=== PATIENT | male | born 1990 | race Caucasian/White ===

== ENCOUNTER 2017-06-20 06:14 | Day surgery (SDC) | payer OTHER ==
--- NOTE | 2017-06-20 07:03 | EDM.PDOC ---
ED HPI GENERAL MEDICAL PROBLEM - General Chief Complaint: Abdominal Pain Stated Complaint: ABDOMINAL PAIN Time Seen by Provider: 06/20/17 06:53 - History of Present Illness INITIAL COMMENTS - FREE TEXT/NARRATIVE: HISTORY AND PHYSICAL: History of present illness: Patient's 26-year-old white male presents with concern of acute right sided flank and abdominal pain with associated nausea and vomiting he denies trauma. Her chills or other complaints this came on acutely this morning while at work he denies history of urolithiasis denies prior surgery Review of systems: As per history of present illness and below otherwise all systems reviewed and negative. Past medical history: As per history of present illness and as reviewed below otherwise noncontributory. Surgical history: As per history of present illness and as reviewed below otherwise noncontributory. Social history: No reported history of drug or alcohol abuse. Family history: As per history of present illness and as reviewed below otherwise noncontributory. Physical exam: HEENT: Atraumatic, normocephalic, pupils reactive, negative for conjunctival pallor or scleral icterus, mucous membranes moist, throat clear, neck supple, nontender, trachea midline. Lungs: Clear to auscultation, breath sounds equal bilaterally, chest nontender. Heart: S1S2, regular, negative for clicks, rubs, or JVD. Abdomen: Soft, nondistended, localized right lower quadrant tenderness with guarding equivocal rebound. Negative for masses or hepatosplenomegaly. Right- sided costovertebral tenderness. Pelvis: Stable nontender. Genitourinary: Deferred. Rectal: Deferred. Extremities: Atraumatic, negative for cords or calf pain. Neurovascular unremarkable. Neuro: Awake, alert, oriented. Cranial nerves II through XII unremarkable. Cerebellum unremarkable. Motor and sensory unremarkable throughout. Exam nonfocal. Diagnostics: CBC CMP UA urine culture CT abdomen and pelvis Therapeutics: Normal saline 1 L bolus and Toradol 30 mg IV Zofran 4 mg IV Dilaudid 1 mg IV Flomax 0.4 mg by mouth Impression: #1 acute right-sided abdominal/flank pain Definitive disposition and diagnosis as appropriate pending reevaluation and review of above. right lower quadrant abdomen Pain Score (Numeric/FACES): 8 - Related Data Allergies Allergy/AdvReac Type Severity Reaction Status Date / Time No Known Allergies Allergy Verified 06/20/17 07:00 Home Meds: Home Meds . [No Known Home Meds] 06/20/17 [History] ED ROS GENERAL - Review of Systems Review Of Systems: ROS reveals no pertinent complaints other than HPI. ED EXAM, GENERAL - Physical Exam Exam: See Below (See dictation) Course - Vital Signs Last Recorded V/S: Last Vital Signs Temp 36.5 C 06/20/17 07:01 Pulse 79 06/20/17 07:25 Resp 16 06/20/17 07:25 BP 128/68 06/20/17 07:25 Pulse Ox 98 06/20/17 07:25 - Orders/Labs/Meds Orders: Active Orders 24 hr Category Date Time Status Abdomen Pelvis wo Cont [CT] Stat Exams 06/20/17 07:12 Taken CULTURE URINE [RM] Stat Lab 06/20/17 07:04 Received Sodium Chloride 0.9% [Saline Flush] Med 06/20/17 07:12 Active 10 ml FLUSH ASDIRECTED PRN Sodium Chloride 0.9% [Saline Flush] Med 06/20/17 07:12 Active 2.5 ml FLUSH ASDIRECTED PRN Saline Lock Insert [OM.PC] Stat Oth 06/20/17 07:07 Ordered Medication Orders Sodium Chloride (Saline Flush) 10 ml FLUSH ASDIRECTED PRN PRN Reason: Keep Vein Open Sodium Chloride (Saline Flush) 2.5 ml FLUSH ASDIRECTED PRN PRN Reason: Keep Vein Open Labs: Laboratory Tests 06/20/17 06/20/17 06/20/17 Range/Units 07:00 07:00 07:04 WBC 11.73 H (4.0-11.0) K/uL RBC 4.37 L (4.50-5.90) M/uL Hgb 14.0 (13.0-17.0) g/dL Hct 40.5 (38.0-50.0) % MCV 92.7 (80.0-98.0) fL MCH 32.0 (27.0-32.0) pg MCHC 34.6 (31.0-37.0) g/dL RDW Std Deviation 44.2 (28.0-62.0) fl RDW Coeff of Annette 13 (11.0-15.0) % Plt Count 199 (150-400) K/uL MPV 9.90 (7.40-12.00) fL Neut % (Auto) 71.9 (48.0-80.0) % Lymph % (Auto) 17.7 (16.0-40.0) % [place] % (Auto) 9.0 (0.0-15.0) % Eos % (Auto) 1.1 (0.0-7.0) % Baso % (Auto) 0.3 (0.0-1.5) % Neut # (Auto) 8.4 H (1.4-5.7) K/uL Lymph # (Auto) 2.1 (0.6-2.4) K/uL [place] # (Auto) 1.1 H (0.0-0.8) K/uL Eos # (Auto) 0.1 (0.0-0.7) K/uL Baso # (Auto) 0.0 (0.0-0.1) K/uL Nucleated RBC % 0.0 /100WBC Nucleated RBCs # 0 K/uL Sodium 138 (136-146) mmol/L Potassium 3.5 (3.5-5.1) mmol/L Chloride 105 (98-110) mmol/L Carbon Dioxide 23 (21-31) mmol/L BUN 9 (6.0-23.0) mg/dL Creatinine 1.0 (0.6-1.5) mg/dL Est Cr Clr Drug Dosing TNP Estimated GFR (MDRD) > 60.0 ml/min Glucose 116 H (60-110) mg/dL Calcium 9.4 (8.8-10.8) mg/dL Total Bilirubin 0.9 (0.1-1.5) mg/dL AST 23 (5-40) IU/L ALT 15 (8-54) IU/L Alkaline Phosphatase 69 (40-150) Total Protein 7.2 (6.0-8.0) g/dL Albumin 4.0 (3.5-5.0) g/dL Globulin 3.2 (2.0-3.5) g/dL Albumin/Globulin Ratio 1.3 (1.3-2.8) Urine Color YELLOW Urine Appearance CLEAR Urine pH 6.0 (5.0-8.0) Ur Specific [place] 1.025 (1.001-1.035) Urine Protein NEGATIVE (NEGATIVE) mg/dL Urine Glucose (UA) NEGATIVE (NEGATIVE) mg/dL Urine Ketones NEGATIVE (NEGATIVE) mg/dL Urine Occult Blood NEGATIVE (NEGATIVE) Urine Nitrite NEGATIVE (NEGATIVE) Urine Bilirubin NEGATIVE (NEGATIVE) Urine Urobilinogen 0.2 (<2.0) EU/dL Ur Leukocyte Esterase NEGATIVE (NEGATIVE) Urine RBC 0-2 (0-2/HPF) Urine WBC 0-1 (0-5/HPF) Ur Epithelial Cells RARE (NONE-FEW) Urine Bacteria RARE (NEGATIVE) Urine Mucus LIGHT (NONE-MOD) Meds: Medications Generic Name Dose Route Start Last Admin Trade Name Freq PRN Reason Stop Dose Admin Sodium Chloride 10 ml 06/20/17 07:12 Saline Flush FLUSH ASDIRECTED PRN Keep Vein Open Sodium Chloride 2.5 ml 06/20/17 07:12 Saline Flush FLUSH ASDIRECTED PRN Keep Vein Open Discontinued Medications Generic Name Dose Route Start Last Admin Trade Name Freq PRN Reason Stop Dose Admin Hydromorphone HCl 1 mg 06/20/17 07:16 06/20/17 07:26 Dilaudid IVPUSH 06/20/17 07:17 1 mg ONETIME ONE Administration Sodium Chloride 1,000 mls @ 999 mls/hr 06/20/17 07:12 06/20/17 07:07 Normal Saline IV 06/20/17 08:12 999 mls/hr STAT ONE Administration Ketorolac Tromethamine 30 mg 06/20/17 07:12 06/20/17 07:24 Toradol IVPUSH 06/20/17 07:13 30 mg ONETIME ONE Administration Ondansetron HCl 4 mg 06/20/17 07:12 06/20/17 07:23 Zofran IVPUSH 06/20/17 07:13 4 mg ONETIME ONE Administration Tamsulosin HCl 0.4 mg 06/20/17 07:16 06/20/17 07:31 Flomax PO 06/20/17 07:17 0.4 mg ONETIME ONE Administration Departure - Departure Time of Disposition: 07:04 Disposition: Refer to Observation Condition: Good Clinical Impression: Abdominal pain - Discharge Information Referrals: PCP,None [Primary Care Provider] - Forms: ED Department Discharge - My Orders Last 24 Hours: My Active Orders 06/20/17 07:04 CULTURE URINE [RM] Stat 06/20/17 07:07 Saline Lock Insert [OM.PC] Stat 06/20/17 07:12 Abdomen Pelvis wo Cont [CT] Stat Sodium Chloride 0.9% [Saline Flush] 10 ml FLUSH ASDIRECTED PRN Sodium Chloride 0.9% [Saline Flush] 2.5 ml FLUSH ASDIRECTED PRN - Assessment/Plan Last 24 Hours: My Active Orders 06/20/17 07:04 CULTURE URINE [RM] Stat 06/20/17 07:07 Saline Lock Insert [OM.PC] Stat 06/20/17 07:12 Abdomen Pelvis wo Cont [CT] Stat Sodium Chloride 0.9% [Saline Flush] 10 ml FLUSH ASDIRECTED PRN Sodium Chloride 0.9% [Saline Flush] 2.5 ml FLUSH ASDIRECTED PRN
[2017-06-20] MEDS ORDERED: Ondansetron 4 MG/2 ML SDV IVPUSH ONE (07:12)
[2017-06-20] MEDS ORDERED: Ketorolac 30 MG/ML SDV IVPUSH ONE (07:12)
[2017-06-20] MEDS ORDERED: Sodium Chloride 0.9% 10 ML Syringe FLUSH PRN (07:12)
[2017-06-20] MEDS ORDERED: Sodium Chloride 0.9% 1,000 ML IV ONE (07:12)
[2017-06-20] MEDS ORDERED: Sodium Chloride 0.9% 2.5 ML Syringe FLUSH PRN (07:12)
[2017-06-20] MEDS ORDERED: Tamsulosin 0.4 MG Cap.ER PO ONE (07:16)
[2017-06-20] MEDS ORDERED: HYDROmorphone 2 MG/ML Syringe IVPUSH ONE (07:16)
[2017-06-20 07:32] LABS: CHLORIDE,CL 105 mmol/L (98-110); SODIUM,NA 138 mmol/L (136-146)
--- NOTE | 2017-06-20 09:39 | PCM.HP ---
H&P History of Present Illness - General Date of Service: 06/20/17 Admit Problem/Dx: RLQ pain Source of Information: Patient History Limitations: Reports: No Limitations - History of Present Illness Initial Comments - Free Text/Narative: Patient is a 26 year old male who presents with RLQ pain that started at 6am this morning. He has never had pain like this before. He has had no infectious contacts. The pain was initially crampy then became constant. It was made worse with any movement. He denies anorexia, nausea, vomiting or diarrhea. He c/o subjective fever, chills and diaphoresis. He came to the ED and was given IV fluids and pain medication. The pain medication made the pain much better, but he still has terrible pain with movement. A CT of the abdomen/pelvis showed mild stranding and fluid along the ascending colon in the RLQ. An appendix was not identified. His WBC is 11.7K. right lower quadrant abdomen Pain Score (Numeric/FACES): 8 - Related Data Allergies/Adverse Reactions: Allergies Allergy/AdvReac Type Severity Reaction Status Date / Time No Known Allergies Allergy Verified 06/20/17 07:00 Home Medications: Home Meds . [No Known Home Meds] 06/20/17 [History] Past Medical History - Past Health History Medical/Surgical History: Denies Medical/Surgical History - Past Surgical History HEENT Surgical History: Reports: Eye Surgery Social & Family History - Family History Family Medical History: Noncontributory - Tobacco Use Tobacco Use Within Last Twelve Months: Smokeless Tobacco (1/2 can perday) Used Tobacco, but Quit: No - Recreational Drug Use Recreational Drug Use: No H&P Review of Systems - Review of Systems: Review Of Systems: ROS reveals no pertinent complaints other than HPI. Exam - Exam Exam: See Below - Vital Signs Vital Signs: Last Vital Signs Temp 36.5 C 06/20/17 07:01 Pulse 83 06/20/17 08:21 Resp 16 06/20/17 08:21 BP 112/65 06/20/17 08:21 Pulse Ox 97 06/20/17 08:21 Weight: 72.575 kg - Exam General: Alert, Oriented HEENT: Mucosa Moist & [place], Nares Patent, Posterior Pharynx Clear, Pupils Equal , Pupils Reactive Neck: Supple, Trachea Midline Lungs: Clear to Auscultation, Normal Respiratory Effort Cardiovascular: Regular Rate, Regular Rhythm GI/Abdominal Exam: Soft, Guarding (RLQ), Rebound (RLQ), Tender (RLQ) (Male) Exam: No Hernia, Normal Inspection Back Exam: Normal Inspection Neuro Extensive - Mental Status: Alert, Oriented x3, Normal Mood/Affect, Normal Cognition, Memory Intact Psychiatric: Alert, Normal Affect, Normal Mood - Patient Data Lab Results Last 24 hrs: Laboratory Results - last 24 hr 06/20/17 06/20/17 06/20/17 Range/Units 07:00 07:00 07:04 WBC 11.73 H (4.0-11.0) K/uL RBC 4.37 L (4.50-5.90) M/uL Hgb 14.0 (13.0-17.0) g/dL Hct 40.5 (38.0-50.0) % MCV 92.7 (80.0-98.0) fL MCH 32.0 (27.0-32.0) pg MCHC 34.6 (31.0-37.0) g/dL RDW Std Deviation 44.2 (28.0-62.0) fl RDW Coeff of Annette 13 (11.0-15.0) % Plt Count 199 (150-400) K/uL MPV 9.90 (7.40-12.00) fL Neut % (Auto) 71.9 (48.0-80.0) % Lymph % (Auto) 17.7 (16.0-40.0) % [place] % (Auto) 9.0 (0.0-15.0) % Eos % (Auto) 1.1 (0.0-7.0) % Baso % (Auto) 0.3 (0.0-1.5) % Neut # (Auto) 8.4 H (1.4-5.7) K/uL Lymph # (Auto) 2.1 (0.6-2.4) K/uL [place] # (Auto) 1.1 H (0.0-0.8) K/uL Eos # (Auto) 0.1 (0.0-0.7) K/uL Baso # (Auto) 0.0 (0.0-0.1) K/uL Nucleated RBC % 0.0 /100WBC Nucleated RBCs # 0 K/uL Sodium 138 (136-146) mmol/L Potassium 3.5 (3.5-5.1) mmol/L Chloride 105 (98-110) mmol/L Carbon Dioxide 23 (21-31) mmol/L BUN 9 (6.0-23.0) mg/dL Creatinine 1.0 (0.6-1.5) mg/dL Est Cr Clr Drug Dosing TNP Estimated GFR (MDRD) > 60.0 ml/min Glucose 116 H (60-110) mg/dL Calcium 9.4 (8.8-10.8) mg/dL Total Bilirubin 0.9 (0.1-1.5) mg/dL AST 23 (5-40) IU/L ALT 15 (8-54) IU/L Alkaline Phosphatase 69 (40-150) Total Protein 7.2 (6.0-8.0) g/dL Albumin 4.0 (3.5-5.0) g/dL Globulin 3.2 (2.0-3.5) g/dL Albumin/Globulin Ratio 1.3 (1.3-2.8) Urine Color YELLOW Urine Appearance CLEAR Urine pH 6.0 (5.0-8.0) Ur Specific [place] 1.025 (1.001-1.035) Urine Protein NEGATIVE (NEGATIVE) mg/dL Urine Glucose (UA) NEGATIVE (NEGATIVE) mg/dL Urine Ketones NEGATIVE (NEGATIVE) mg/dL Urine Occult Blood NEGATIVE (NEGATIVE) Urine Nitrite NEGATIVE (NEGATIVE) Urine Bilirubin NEGATIVE (NEGATIVE) Urine Urobilinogen 0.2 (<2.0) EU/dL Ur Leukocyte Esterase NEGATIVE (NEGATIVE) Urine RBC 0-2 (0-2/HPF) Urine WBC 0-1 (0-5/HPF) Ur Epithelial Cells RARE (NONE-FEW) Urine Bacteria RARE (NEGATIVE) Urine Mucus LIGHT (NONE-MOD) Result Diagrams: 06/20/17 07:00 06/20/17 07:00 *Q Meaningful Use (ADM) - VTE *Q VTE Criteria *Q: - Stroke *Q Stroke Criteria *Q: - AMI *Q AMI Criteria *Q: - Problem List (1) Abdominal pain SNOMED Code(s): 56017201 ICD Code: R10.9 - UNSPECIFIED ABDOMINAL PAIN Status: Acute Current Visit : Yes Problem List Initiated/Reviewed/Updated: Yes Orders Last 24hrs: Active Orders 24 hr Category Date Time Status Abdomen Pelvis wo Cont [CT] Stat Exams 06/20/17 07:12 Taken CULTURE URINE [RM] Stat Lab 06/20/17 07:04 Received Sodium Chloride 0.9% [Saline Flush] Med 06/20/17 07:12 Active 10 ml FLUSH ASDIRECTED PRN Sodium Chloride 0.9% [Saline Flush] Med 06/20/17 07:12 Active 2.5 ml FLUSH ASDIRECTED PRN Saline Lock Insert [OM.PC] Stat Oth 06/20/17 07:07 Ordered Medication Orders Sodium Chloride (Saline Flush) 10 ml FLUSH ASDIRECTED PRN PRN Reason: Keep Vein Open Sodium Chloride (Saline Flush) 2.5 ml FLUSH ASDIRECTED PRN PRN Reason: Keep Vein Open Assessment/Plan Comment:: The patients story, clinical exam, and leukocytosis are very convincing for appendicitis. Even though there is no appendix visualized on CT there is inflammatory findings around the cecum. I explained this to the patient. We both agreed that the best course of action would be removal of the appendix. There is a small chance he has inflammatory bowel disease, but his clinical picture is too convincing to not go to the OR. We discussed the pathophysiology of appendicitis. We discussed the treatment which is removal of the appendix. We discussed laparoscopic and open appendectomy. I will attept this laparoscopically. If I cannot perform this safely I will convert to open. We discussed the risks including bleeding infection or damage to surrounding structures. The patient verbalized understanding and wishes to proceed.
[2017-06-20] MEDS: Lactated Ringers 1,000 ML IV SCH ×2 (09:45→12:08)
[2017-06-20] MEDS ORDERED: Piperacillin/Tazobactam 3.375 GM in Sodium Chloride 0.9% 50 ML IV ONE (09:47)
[2017-06-20] MEDS ORDERED: ceFAZolin 1 GM Vial ONE (09:51)
[2017-06-20] MEDS ORDERED: Bupivacaine 0.5% 30 ML SDV ONE (09:51)
[2017-06-20] MEDS ORDERED: Ondansetron 4 MG/2 ML SDV ONE ×2 (09:55→09:57)
[2017-06-20] MEDS ORDERED: Ketorolac 30 MG/ML SDV ONE (09:56)
[2017-06-20] MEDS ORDERED: Dexamethasone 4 MG/ML 5 ML MDV ONE (09:56)
[2017-06-20] MEDS ORDERED: Rocuronium 10 MG/ML 10 ML Syringe ONE (09:56)
[2017-06-20] MEDS ORDERED: fentaNYL 100 MCG/2 ML SDV ONE (09:57)
[2017-06-20] MEDS ORDERED: Propofol 200 MG/20 ML SDV ONE (09:57)
[2017-06-20] MEDS ORDERED: Midazolam 1 MG/ML 2 ML SDV ONE (09:58)
[2017-06-20] MEDS ORDERED: Morphine 10 MG/ML Syringe ONE (10:01)
--- NOTE | 2017-06-20 10:19 | PCM.PREANE ---
Preanesthetic Assessment - Procedure Proposed Procedure: Lap Appy - Anesthesia/Transfusion/Family Hx Anesthesia History: Prior Anesthesia Without Reaction Family History of Anesthesia Reaction: No Transfusion History: No Prior Transfusion(s) - Review of Systems General: No Symptoms Pulmonary: No Symptoms Cardiovascular: No Symptoms Gastrointestinal: Abdominal Pain Neurological: No Symptoms Other: Reports: None - Physical Assessment NPO Status Date: 06/20/17 NPO Status Time: 05:30 O2 Sat by Pulse Oximetry: 96 Respiratory Rate: 16 Vital Signs: Last Vital Signs Temp 36.7 C 06/20/17 09:46 Pulse 83 06/20/17 10:12 Resp 16 06/20/17 10:12 BP 116/56 L 06/20/17 10:12 Pulse Ox 96 06/20/17 10:12 Weight: 72.575 kg ASA Class: 2E Mental Status: Alert & Oriented x3 Dentition: Reports: Normal Dentition Thyro-Mental Finger Breadths: 3 Mouth Opening Finger Breadths: 3 ROM/Head Extension: Full Lungs: Clear to Auscultation Cardiovascular: Regular Rate - Lab Values: Laboratory Last Values WBC 11.73 K/uL (4.0-11.0) H 06/20/17 07:00 RBC 4.37 M/uL (4.50-5.90) L 06/20/17 07:00 Hgb 14.0 g/dL (13.0-17.0) 06/20/17 07:00 Hct 40.5 % (38.0-50.0) 06/20/17 07:00 MCV 92.7 fL (80.0-98.0) 06/20/17 07:00 MCH 32.0 pg (27.0-32.0) 06/20/17 07:00 MCHC 34.6 g/dL (31.0-37.0) 06/20/17 07:00 RDW Std Deviation 44.2 fl (28.0-62.0) 06/20/17 07:00 RDW Coeff of Annette 13 % (11.0-15.0) 06/20/17 07:00 Plt Count 199 K/uL (150-400) 06/20/17 07:00 MPV 9.90 fL (7.40-12.00) 06/20/17 07:00 Neut % (Auto) 71.9 % (48.0-80.0) 06/20/17 07:00 Lymph % (Auto) 17.7 % (16.0-40.0) 06/20/17 07:00 [place] % (Auto) 9.0 % (0.0-15.0) 06/20/17 07:00 Eos % (Auto) 1.1 % (0.0-7.0) 06/20/17 07:00 Baso % (Auto) 0.3 % (0.0-1.5) 06/20/17 07:00 Neut # (Auto) 8.4 K/uL (1.4-5.7) H 06/20/17 07:00 Lymph # (Auto) 2.1 K/uL (0.6-2.4) 06/20/17 07:00 [place] # (Auto) 1.1 K/uL (0.0-0.8) H 06/20/17 07:00 Eos # (Auto) 0.1 K/uL (0.0-0.7) 06/20/17 07:00 Baso # (Auto) 0.0 K/uL (0.0-0.1) 06/20/17 07:00 Nucleated RBC % 0.0 /100WBC 06/20/17 07:00 Nucleated RBCs # 0 K/uL 06/20/17 07:00 Sodium 138 mmol/L (136-146) 06/20/17 07:00 Potassium 3.5 mmol/L (3.5-5.1) 06/20/17 07:00 Chloride 105 mmol/L (98-110) 06/20/17 07:00 Carbon Dioxide 23 mmol/L (21-31) 06/20/17 07:00 BUN 9 mg/dL (6.0-23.0) 06/20/17 07:00 Creatinine 1.0 mg/dL (0.6-1.5) 06/20/17 07:00 Est Cr Clr Drug Dosing TNP 06/20/17 07:00 Estimated GFR (MDRD) > 60.0 ml/min 06/20/17 07:00 Glucose 116 mg/dL (60-110) H 06/20/17 07:00 Calcium 9.4 mg/dL (8.8-10.8) 06/20/17 07:00 Total Bilirubin 0.9 mg/dL (0.1-1.5) 06/20/17 07:00 AST 23 IU/L (5-40) 06/20/17 07:00 ALT 15 IU/L (8-54) 06/20/17 07:00 Alkaline Phosphatase 69 (40-150) 06/20/17 07:00 Total Protein 7.2 g/dL (6.0-8.0) 06/20/17 07:00 Albumin 4.0 g/dL (3.5-5.0) 06/20/17 07:00 Globulin 3.2 g/dL (2.0-3.5) 06/20/17 07:00 Albumin/Globulin Ratio 1.3 (1.3-2.8) 06/20/17 07:00 Urine Color YELLOW 06/20/17 07:04 Urine Appearance CLEAR 06/20/17 07:04 Urine pH 6.0 (5.0-8.0) 06/20/17 07:04 Ur Specific [place] 1.025 (1.001-1.035) 06/20/17 07:04 Urine Protein NEGATIVE mg/dL (NEGATIVE) 06/20/17 07:04 Urine Glucose (UA) NEGATIVE mg/dL (NEGATIVE) 06/20/17 07:04 Urine Ketones NEGATIVE mg/dL (NEGATIVE) 06/20/17 07:04 Urine Occult Blood NEGATIVE (NEGATIVE) 06/20/17 07:04 Urine Nitrite NEGATIVE (NEGATIVE) 06/20/17 07:04 Urine Bilirubin NEGATIVE (NEGATIVE) 06/20/17 07:04 Urine Urobilinogen 0.2 EU/dL (<2.0) 06/20/17 07:04 Ur Leukocyte Esterase NEGATIVE (NEGATIVE) 06/20/17 07:04 Urine RBC 0-2 (0-2/HPF) 06/20/17 07:04 Urine WBC 0-1 (0-5/HPF) 06/20/17 07:04 Ur Epithelial Cells RARE (NONE-FEW) 06/20/17 07:04 Urine Bacteria RARE (NEGATIVE) 06/20/17 07:04 Urine Mucus LIGHT (NONE-MOD) 06/20/17 07:04 - Allergies Allergies/Adverse Reactions: Allergies Allergy/AdvReac Type Severity Reaction Status Date / Time No Known Allergies Allergy Verified 06/20/17 07:00 - Blood Blood Available: No Product(s) Available: None - Anesthesia Plan Free Text/Narrative:: GEAT RSI Pre-Op Medication Ordered: Other - Acknowledgements Anesthesia Type Planned: General Anesthesia Pt an Appropriate Candidate for the Planned Anesthesia: Yes Alternatives and Risks of Anesthesia Discussed w Pt/Guardian: Yes Pt/Guardian Understands and Agrees with Anesthesia Plan: Yes Additional Comments: Zosyn in ER Pt Chews Anesthesia discussed, ? answered, understands risks and benefits. Accepts PreAnesthesia Questionnaire - Past Health History Medical/Surgical History: Denies Medical/Surgical History - Past Surgical History HEENT Surgical History: Reports: Eye Surgery - SUBSTANCE USE Tobacco Use Within Last Twelve Months: Smokeless Tobacco (1/2 can perday) Recreational Drug Use History: No - HOME MEDS Home Medications: Home Meds . [No Known Home Meds] 06/20/17 [History] - CURRENT (IN HOUSE) MEDS Current Meds: Current Medications Lactated Ringer's (Ringers, Lactated) 1,000 mls @ 125 mls/hr IV ASDIRECTED LESLY Last Admin: 06/20/17 09:45 Dose: 125 mls/hr Piperacillin Sod/Tazobactam (Sod 3.375 gm/ Sodium Chloride) 50 mls @ 100 mls/ hr IV ONETIME ONE Stop: 06/20/17 10:16 Last Admin: 06/20/17 10:05 Dose: 100 mls/hr Sodium Chloride (Saline Flush) 10 ml FLUSH ASDIRECTED PRN PRN Reason: Keep Vein Open Sodium Chloride (Saline Flush) 2.5 ml FLUSH ASDIRECTED PRN PRN Reason: Keep Vein Open Discontinued Medications Bupivacaine HCl (Marcaine 0.5%) Confirm Administered Dose 30 ml .ROUTE .STK-MED ONE Stop: 06/20/17 09:52 Cefazolin Sodium (Ancef) Confirm Administered Dose 1 gm .ROUTE .STK-MED ONE Stop: 06/20/17 09:52 Dexamethasone (Dexamethasone) Confirm Administered Dose 20 mg .ROUTE .STK-MED ONE Stop: 06/20/17 09:57 Fentanyl (Sublimaze) Confirm Administered Dose 100 mcg .ROUTE .STK-MED ONE Stop: 06/20/17 09:58 Glycopyrrolate () Confirm Administered Dose 1 mg .ROUTE .STK-MED ONE Stop: 06/20/17 09:58 Hydromorphone HCl (Dilaudid) 1 mg IVPUSH ONETIME ONE Stop: 06/20/17 07:17 Last Admin: 06/20/17 07:26 Dose: 1 mg Sodium Chloride (Normal Saline) 1,000 mls @ 999 mls/hr IV STAT ONE Stop: 06/20/17 08:12 Last Admin: 06/20/17 07:07 Dose: 999 mls/hr Ketorolac Tromethamine (Toradol) 30 mg IVPUSH ONETIME ONE Stop: 06/20/17 07:13 Last Admin: 06/20/17 07:24 Dose: 30 mg Ketorolac Tromethamine (Toradol) Confirm Administered Dose 30 mg .ROUTE .STK- MED ONE Stop: 06/20/17 09:57 Midazolam HCl (Versed 1 Mg/Ml) Confirm Administered Dose 2 mg .ROUTE .STK-MED ONE Stop: 06/20/17 09:59 Morphine Sulfate (Morphine) Confirm Administered Dose 10 mg .ROUTE .STK-MED ONE Stop: 06/20/17 10:02 Ondansetron HCl (Zofran) 4 mg IVPUSH ONETIME ONE Stop: 06/20/17 07:13 Last Admin: 06/20/17 07:23 Dose: 4 mg Ondansetron HCl (Zofran) Confirm Administered Dose 4 mg .ROUTE .STK-MED ONE Stop: 06/20/17 09:56 Ondansetron HCl (Zofran) Confirm Administered Dose 4 mg .ROUTE .STK-MED ONE Stop: 06/20/17 09:58 Propofol (Diprivan 20 Ml) Confirm Administered Dose 200 mg .ROUTE .STK-MED ONE Stop: 06/20/17 09:58 Rocuronium [place] (Zemuron) Confirm Administered Dose 100 mg .ROUTE .STK-MED ONE Stop: 06/20/17 09:57 Tamsulosin HCl (Flomax) 0.4 mg PO ONETIME ONE Stop: 06/20/17 07:17 Last Admin: 06/20/17 07:31 Dose: 0.4 mg
[2017-06-20] MEDS ORDERED: Sugammadex Sodium 200 MG/2 ML VIAL ONE (11:13)
--- NOTE | 2017-06-20 11:29 | PCM.OPNOTE ---
- General Post-Op/Procedure Note Date of Surgery/Procedure: 06/20/17 Operative Procedure(s): Laparoscopic appendectomy Findings: Inflamed and enlarged appendix. No perforation. Pre Op Diagnosis: Abdominal pain Post-Op Diagnosis: Appendicitis Anesthesia Technique: General ET Tube Primary Surgeon: Lisa Mays Fluid Replacement, Intraop: 1,150 Output, Urine Amount: 230 EBL in mLs: 10 Condition: Fair
[2017-06-20] MEDS ORDERED: Ondansetron 4 MG/2 ML SDV IVPUSH PRN (11:39)
[2017-06-20] MEDS ORDERED: Acetaminophen/HYDROcodone 325-5 MG Tab PO PRN (11:39)
--- NOTE | 2017-06-20 11:48 | PCM.POSTAN ---
POST ANESTHESIA ASSESSMENT - MENTAL STATUS Mental Status: Alert, Oriented Free Text/Narrative:: DOING WELL, NO PAIN PRESENTLY, A&O X3, NO NAUSEA. WILL DISCHARGE TO FLOOR IN GOOD CONDITION. - VITAL SIGNS Pulse Rate: 72 SaO2: 98 Resp Rate: 16 Blood Pressure: 104/51 - RESPIRATORY Respiratory Status: Respiratory Rate WNL, Airway Patent, O2 Saturation Stable - CARDIOVASCULAR CV Status: Pulse Rate WNL, Blood Pressure Stable - GASTROINTESTINAL GI Status: No Symptoms - POST OP HYDRATION Hydration Status: Adequate & Stable - OBSERVATIONS Free Text/Narrative:: STABLE READY TO BE TRANSFERED TO FLOOR
--- NOTE | 2017-06-20 12:03 | OR ---
SURGEON: CHELSEA BARRAGAN MD DATE OF PROCEDURE: 06/20/2017 PREOPERATIVE DIAGNOSIS: Abdominal pain. POSTOPERATIVE DIAGNOSIS: Acute appendicitis, nonperforated. PROCEDURE PERFORMED: Laparoscopic appendectomy. ANESTHESIA: General endotracheal anesthesia. FLUIDS: 1150 mL crystalloid. URINE OUTPUT: 230 mL. ESTIMATED BLOOD LOSS: 10 mL. FINDINGS: Acutely inflamed and enlarged appendix consistent with acute appendicitis. Nonperforated. COMPLICATIONS: None. INDICATIONS: The patient is a 26-year-old male, who developed acute onset of right lower quadrant pain this morning. This was associated with fevers, chills, and diaphoresis. Pain was made worse with movement. CT of the abdomen and pelvis showed mild stranding and fluid around the right lower quadrant, but was unable to identify the appendix. His white count was 11.7000. On physical exam, he was tender in the right lower quadrant and peritoneal with any movement. A decision was made to perform an appendectomy. We discussed the pathophysiology of appendicitis. We discussed laparoscopic and open approach. I would attempt this laparoscopically, but should I be unable to complete it safely, I would do it open. The patient and I discussed the risks, including bleeding, infection, or damage to surrounding structures. The patient verbalized understanding and wishes to proceed. PROCEDURE IN DETAIL: The patient was brought into the operating room and placed on the OR table in supine position. A time-out was completed verifying the patient's name, age, date of , allergies, and procedure to be performed. General endotracheal anesthesia was induced. The abdomen was shaved and a Jameson catheter placed. The abdomen was prepped and draped in the usual standard fashion. I anesthetized an area 2-3 fingerbreadths below the left subcostal margin in the midclavicular line with 0.5% Marcaine plain. An 11 blade was used to make a 1 cm incision through the skin. A 5 mm optical trocar was used to gain access into the left upper quadrant. All layers of the abdomen were visualized upon entry. The abdomen was insufflated. A 5 mm trocar was placed under direct visualization just lateral to the umbilicus on the left side. A 12 mm trocar was placed in the left lower quadrant. The patient was placed into Trendelenburg position and airplaned slightly to the left. I identified the cecum, which appeared mildly injected. I followed the tenia down to the base of the appendix. The appendix was retrocecal, but was easily swept anterior. The appendix was noted to be inflamed, enlarged with fibrinous exudate on the tip. This confirmed the diagnosis of appendicitis. I cleared away the base of the appendix where it entered the cecum using a Destinee dissector. An endoscopic stapler was then passed through this mesenteric window across the base of the appendix. A 45 mm blue load of yesenia was used to staple and transect the base of the appendix as it came upon the cecum. A Harmonic Scalpel was used to take down the appendiceal mesentery from distal to proximal along the length of the appendix. The appendix was then placed in an EndoCatch bag and removed through the 12 mm port site. The 12 mm port was replaced and I inspected the right lower quadrant. It appeared to be hemostatic and there was no purulence or fluid that needed to be irrigated. The 12 mm port site was then closed with 0 Vicryl suture using a Obie-Emil needle. The 5 mm port sites were removed under direct visualization. There was no bleeding at the port sites after removal. The abdomen was allowed to desufflate. The 12 mm port site was closed with interrupted 3-0 Vicryl in the subcutaneous layer. The skin was closed with a running 4-0 Monocryl stitch. The 5 mm port sites were closed with interrupted 4-0 Monocryl. Steri-Strips and sterile dressings were applied. The patient was extubated and taken to PACU in stable condition. FAITH JOHNSTON /[id number]
[2017-06-20] MEDS ORDERED: Acetaminophen 325 MG Tab PO PRN (15:36)
--- NOTE | 2017-06-21 11:17 | PCM48HPAN ---
Post Anesthesia Note - EVALUATION WITHIN 48HRS OF ANESTHETIC Vital Signs in Normal Range: Yes Patient Participated in Evaluation: Yes Respiratory Function Stable: Yes Airway Patent: Yes Cardiovascular Function Stable: Yes Hydration Status Stable: Yes Pain Control Satisfactory: Yes Nausea and Vomiting Control Satisfactory: Yes Mental Status Recovered: Yes - COMMENTS/OBSERVATIONS Free Text/Narrative:: DISCHARGED IN GOOD CONDITION
--- NOTE | 2017-06-21 19:11 | CT ---
EXAM DATE: 06/20/17 PATIENT'S AGE: 26 Patient: STORM ROLLINS Facility: [place], [place] Site . Site : [id number] Study: CT Abdomen/Pelvis wo cont [id number] 7:49:50 AM Ordering Physician: Lamine Cervantes Final Report: INDICATION: Lower abdominal pain since 6 a.m. specially on the right with nausea. Technique: CT abdomen pelvis performed with oral contrast only. Findings: Opaque densities in the distal stomach likely related to recently ingested medication. Small amounts of fluid and soft tissue stranding in the right abdomen along the inferior liver and right colon extending into the pelvis along the pericecal and periappendiceal region with associated mild fat stranding. Findings would suggest an acute inflammatory or edematous process in this region. I believe I can identify portions of the appendix but I cannot confirm with certainty that the appendix is normal on this exam. The appendix may be seen in the right mid pelvis anteriorly along the base of the cecum and the upper limits of normal however I cannot be certain of this. A portion of the ascending colon appears to have mild wall prominence but is not well distended. Cannot exclude the possibility of appendiceal or right colon acute inflammatory process on this exam. Recommend repeat CT with continued more optimal oral contrast and IV contrast need further evaluation. Small amount of fluid in the pelvis posteriorly is abnormal in a young male patient. Minimal amounts of soft tissue stranding and fluid along fascial planes in the right mid and upper abdomen more medially to the colon. Remainder negative. Impression: 1. Small amounts of fluid and soft tissue stranding in the right abdomen and pelvis particularly about the right colon and periappendiceal region. Appendix is difficult to confirm as definitively normal on this exam and there is a short segment of the ascending colon which is either not well-distended or has some luminal narrowing and wall thickening. Findings consistent with an acute inflammatory or edematous process in the right abdomen and I cannot exclude acute colonic or appendiceal pathology on this exam although such pathology also cannot be confirmed on this exam. Recommend CT abdomen and pelvis with IV contrast and continued oral contrast. 2. Very small amount of fluid in the pelvis posteriorly abnormal in a male patient and likely related to the right abdominal process. Other findings as above. Please note that all CT scans at this facility use dose modulation, iterative reconstruction, and/or weight-based dosing when appropriate to reduce radiation dose to as low as reasonably achievable. Dictated by Demario Mendez MD @ Jun 20 2017 8:07AM (Electronic Signature) Report Signed by Proxy. MTDD
== END 2017-06-20 17:30 | disposition home or self-care (01) ==
LOC: MW.ED 06:14 → MW.SDS 09:35 → MW.MS 11:51 → MW.SDS 17:30
PROVIDERS: ATTEND Surgery
DX: K35.80 Unspecified acute appendicitis (principal); F17.290 Nicotine dependence, other tobacco product, uncomplicated; Z98.890 Other specified postprocedural states
CPT/HCPCS: 36415; 44970; 74176; 80053; 81001; 85025; 87086; 96361; 96374; 96375; 99285; A9270; C9399; J1100; J1170; J1885; J2250; J2270; J2405; J2543; J3010; J7040; J7050; J7120; 00840; 88304; 99283; J0690; J2704